=== PATIENT | male | born 1985 | race African-American/Black ===

== ENCOUNTER 2017-12-13 10:51 | Emergency (ER) | payer OTHER ==
[~2017-12-13] VITALS: Ht 190.5 cm; Wt 96.4 kg
[2017-12-13] MEDS ORDERED: DOXYCYCLINE MO100 MG PO (11:29)
[2017-12-13 11:37] VITALS: BP 00/00
== END 2017-12-13 11:45 | disposition home or self-care (01) ==
LOC: EME 10:51
DX: L02.214 Cutaneous abscess of groin (principal); F17.200 Nicotine dependence, unspecified, uncomplicated
CPT/HCPCS: 99281; 99283